=== PATIENT | female | born 1990 | race African-American/Black ===

== ENCOUNTER 2019-04-05 10:40 | Emergency (ER) | payer OTHER ==
[~2019-04-05] VITALS: Ht 167.6 cm; Wt 63.0 kg
[2019-04-05 11:59] VITALS: BP 108/50
== END 2019-04-05 12:05 | disposition left against medical advice (07) ==
LOC: ER 10:40
DX: L76.22 Postprocedural hemorrhage of skin and subcutaneous tissue following other procedure (principal); Y83.4 Other reconstructive surgery as the cause of abnormal reaction of the patient, or of later complication, without mention of misadventure at the time of the procedure; Y92.018 Other place in single-family (private) house as the place of occurrence of the external cause
CPT/HCPCS: 99283